=== PATIENT | male | born 1965 | race Caucasian/White ===

== ENCOUNTER 2022-09-03 10:17 | Outpatient (CLI) | payer MEDICARE | END 2022-09-03 10:18 | disposition home or self-care (01) | LOC: CSHCP 10:17 | PROVIDERS: ATTEND Psychiatry & Neurology Neurology | DX: C71.2 Malignant neoplasm of temporal lobe (principal); Z92.21 Personal history of antineoplastic chemotherapy | CPT/HCPCS: 94010; 94726; 94729; 94760 ==